=== PATIENT | male | born 1970 | race Caucasian/White ===

== ENCOUNTER 2020-06-17 18:28 | Emergency (ER) | payer OTHER ==
[~2020-06-17] VITALS: Ht 175.3 cm; Wt 117.9 kg
[2020-06-17] MEDS ORDERED: TDAP [DIPH/PERTUSSIS/TET] 0.5 ML VIAL IM ONE ×2 (18:55→19:00)
--- NOTE | 2020-06-17 19:11 | NUR ---
patient came in to the er c/o right thumb lac. on room air, breathing evenly and unlabored. kept comfortable, will continue to monitor accordingly.
--- NOTE | 2020-06-17 19:17 | NUR ---
report given to Diego FLOWER for quintin
[2020-06-17 19:33] VITALS: BP 135/81
--- NOTE | 2020-06-17 19:33 | NUR ---
Patient discharged to home in stable condition. Written and verbal after care instructions given. Patient verbalizes understanding of instruction. PT LEFT WITH AFTER CARE INSTRUCTIONS. MD HERMOSILLO
== END 2020-06-17 19:33 | disposition home or self-care (01) ==
LOC: ER 18:31
DX: S61.011A Laceration without foreign body of right thumb without damage to nail, initial encounter (principal); I10 Essential (primary) hypertension; F32.9 Major depressive disorder, single episode, unspecified; F12.90 Cannabis use, unspecified, uncomplicated; W26.0XXA Contact with knife, initial encounter; Y93.E8 Activity, other personal hygiene; Y92.090 Kitchen in other non-institutional residence as the place of occurrence of the external cause; Y99.8 Other external cause status
CPT/HCPCS: 12001; 90471; 90715; 99283; A6403

== ENCOUNTER 2021-01-13 14:27 | Emergency (ER) | payer OTHER ==
[~2021-01-13] VITALS: Ht 170.2 cm; Wt 113.4 kg
[2021-01-13] MEDS ORDERED: BISACODYL SUPP (10 MG) 10 MG/SUPP.RECT SUPP.RECT RC ONE ×2 (15:00→15:12)
[2021-01-13] MEDS ORDERED: KETOROLAC TROMETHAMINE INJ 30 MG/ML VIAL IV ONE (15:00)
[2021-01-13] MEDS ORDERED: IV NS 0.9% 1,000 ML BAG IV ONE (15:00)
[2021-01-13] MEDS ORDERED: KETOROLAC TROMETHAMINE 15 MG/ML VIAL ONE (15:11)
[2021-01-13 15:36] LABS: MEAN CORPUSCULAR VOLUME 86 fL (80-96)
[2021-01-13 15:47] LABS: BASOPHILS % (AUTO) 0.3 % (0.0-2.0); EOSINOPHILS % (AUTO) 0.2 % (0.0-6.0); HEMATOCRIT 43 % (39-51); HEMOGLOBIN 14.5 g/dL (13.5-17.5); LYMPHOCYTES # (AUTO) 1.2 /CMM (0.8-4.8); LYMPHOCYTES % (AUTO) 8.5 % (20.0-44.0); MEAN CORPUSCULAR HGB CONC 34 g/dl (31.0-36.0); MONOCYTES % (AUTO) 7.3 % (2.0-12.0); NEUTROPHILS # (AUTO) 11.9 /CMM (1.8-8.9); NEUTROPHILS % (AUTO) 83.7 % (43.0-81.0); PLATELET COUNT (AUTO) 421 /CMM (150-450); RED BLOOD CELL COUNT(AUTO) 4.93 MIL/uL (4.5-6.0); WHITE BLOOD COUNT (AUTO) 14.3 K/uL (4.3-11.0)
[2021-01-13 16:13] LABS: CREATININE 1.3 mg/dL (0.6-1.3); POTASSIUM 3.8 mmol/L (3.5-5.1)
[2021-01-13 16:19] LABS: ALBUMIN 2.8 g/dL (3.4-5.0); BILIRUBIN,DIRECT 0.3 mg/dL (0.0-0.2); BILIRUBIN,TOTAL 1.2 mg/dL (0.2-1.0); TOTAL PROTEIN, SERUM 6.9 g/dL (6.4-8.2)
--- NOTE | 2021-01-13 16:38 | NUR ---
IV NS 1000ml completed. Endtime [id number]
[2021-01-13] MEDS ORDERED: LIDOCAINE 2% JEL UROJET 10 ML MM ONE (17:30)
[2021-01-13 17:54] LABS: BILIRUBIN,URINE SMALL (NEGATIVE); COLOR,URINE DARK YELLOW (YELLOW); LEUKOCYTE ESTERASE ,URINE Trace (NEGATIVE); NITRITE, URINE Positive (NEGATIVE); PROTEIN,URINE 30 mg/dl (NEGATIVE); UGLUCOSE Negative (NEGATIVE)
[2021-01-13 18:12] LABS: BACTERIA,URINE Many /HPF (None Seen)
[2021-01-13 18:13] LABS: SQUAMOUS EPITHELIAL CELL,UR Few /HPF (None Seen)
[2021-01-13] MEDS ORDERED: POLY17PO4 PO (18:18)
[2021-01-13] MEDS ORDERED: LEVO750T46 PO (18:18)
[2021-01-13] MEDS ORDERED: LEVOFLOXACIN 750 MG /D5W 150ML 150 ML IV ONE (18:23)
[2021-01-13] MEDS ORDERED: LEVOFLOXACIN 750 MG /D5W 150ML PIGGYBACK IV ONE (18:30)
--- NOTE | 2021-01-13 19:10 | NUR ---
pt received from steffanie torres for quintin. pt is in bed. receiving atb iv infusion. pt is marked for dc but awaiting to finish atb.
--- NOTE | 2021-01-13 20:15 | NUR ---
Patient discharged to home in stable condition. Written and verbal after care instructions given. Patient verbalizes understanding of instruction.IV removed. Catheter intact and site benign. Pressure and 4x4 applied to site. No bleeding noted. Pt ambulatory with a steady gait
[2021-01-13 20:18] VITALS: BP 135/75
--- NOTE | 2021-01-13 20:53 | NUR ---
[facility] CALLED TO PLACED PRECRIPTION.
== END 2021-01-13 20:18 | disposition home or self-care (01) ==
LOC: ER 14:37
DX: N39.0 Urinary tract infection, site not specified (principal); K59.00 Constipation, unspecified; E80.7 Disorder of bilirubin metabolism, unspecified; K76.0 Fatty (change of) liver, not elsewhere classified; I10 Essential (primary) hypertension; F32.9 Major depressive disorder, single episode, unspecified; Z87.442 Personal history of urinary calculi; Z79.899 Other long term (current) drug therapy; Z86.16 Personal history of COVID-19
CPT/HCPCS: 36415; 51702; 74176; 80048; 80076; 81001; 83690; 85025; 87086; 96361; 96365; 96375; 99284; J1885; J1956; J7030; 87186-TC